=== PATIENT | male | born 1970 | race Caucasian/White ===

== ENCOUNTER 2016-07-14 19:35 | Inpatient (IN) | payer MEDICARE, OTHER ==
[~2016-07-14] VITALS: Ht 188 cm; Wt 92.0 kg
[~2016-07-14 19:35] MED LIST: MOTR200T4 PO
[2016-07-14 19:37] VITALS: BP 147/89; PULSE 112; RESP 18; TEMP 98.2; O2SAT 95
[2016-07-15] VITALS (7 sets, daily range): BP systolic 110–132; BP diastolic 80–88; PULSE 76–82; RESP 16–18; TEMP 97.4–98.9; O2SAT 95–99
[2016-07-15] MEDS ORDERED: FLUCONAZOLE 100 MG PREMIX BAG 50 ML IV ONE (01:15)
[2016-07-15] MEDS ORDERED: SODIUM CHLOR 0.9% 1000 ML INJ 1,000 ML IV ONE (01:15)
[2016-07-15] MEDS ORDERED: CLINDAMYCIN INJ 600 MG in SODIUM CHLORIDE 0.9% INJ 100 ML IV ONE (01:15)
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
[2016-07-15 02:00] LABS: BASOPHIL # 0.1 TH/MM3 (0-0.2); BASOPHIL % 0.9 % (0.0-2.0); EOSINOPHIL # 0.1 TH/MM3 (0-0.4); EOSINOPHIL % 1.9 % (0.0-4.0); HEMATOCRIT 42.5 % (39.0-51.0); HEMO FLAGS DIFF FINAL; LYMPH % 22.2 % (9.0-44.0); LYMPHOCYTE # 1.6 TH/MM3 (1.0-4.8); MEAN CELL VOLUME 89.3 FL (80.0-100.0); MEAN CORPUSCULAR HEMOGLOBIN 29.8 PG (27.0-34.0); MEAN CORPUSCULAR HGB CONC 33.3 % (32.0-36.0); PLATELET COUNT 227 TH/MM3 (150-450); RED BLOOD COUNT 4.75 MIL/MM3 (4.50-5.90); RED CELL DISTRIBUTION WIDTH 12.8 % (11.6-17.2); WHITE BLOOD COUNT 7.4 TH/MM3 (4.0-11.0)
[2016-07-15 02:04] LABS: BLOOD, URINE NEG (NEG); COMMENT (UR) CATH-CULT NOT IND; CULTURE IF INDICATED CATH CULTURE NOT IND; GLUCOSE,URINE NEG (NEG); KETONE, URINE NEG (NEG); MUCUS URINE FEW /lpf (OCC); NITRITE,URINE NEG (NEG); SQUAMOUS EPITHELIAL CELL URINE <1 /hpf (0-5); URINE COLOR YELLOW (YELLW/STRAW)
[2016-07-15 02:30] LABS: ALKALINE PHOSPHATASE 72 U/L (45-117); TOTAL BILIRUBIN ADULT 0.8 MG/DL (0.2-1.0)
[2016-07-15 02:32] LABS: ALT (GPT) 20 U/L (12-78); ANION GAP 7 MEQ/L (5-15); AST (GOT) 15 U/L (15-37); BICARBONATE 30.4 MEQ/L (21.0-32.0); BLOOD UREA NITROGEN 18 MG/DL (7-18); CHLORIDE 104 MEQ/L (98-107); GLOMERULAR FILTRATION RATE 71 ML/MIN (>89); POTASSIUM 4.4 MEQ/L (3.5-5.1); SODIUM (NA) 141 MEQ/L (136-145)
--- NOTE | 2016-07-15 02:43 | RADRPT ---
EXAM DATE/TIME: 07/15/2016 01:40 [place] COMPARISON: CHEST PA & LAT, May 15, 2009, 22:49. INDICATIONS : Cough. MEDICAL HISTORY : None. SURGICAL HISTORY : None. ENCOUNTER: Initial ACUITY: 1 day PAIN SCORE: Non-responsive. LOCATION: Bilateral chest FINDINGS: There is prominent elevation of the diaphragm which was not present previously. Persistent perihilar parenchymal opacity on the right. Left lung is grossly clear. CONCLUSION: Prominent elevation of the right diaphragm which was not present in 2008. Right perihilar and/or basi lar parenchymal process should be considered Kei Ceballos MD on July 15, 2016 at 2:39 Board Certified Radiologist. This report was verified electronically.
[2016-07-15] MEDS ORDERED: SODIUM CHLORIDE 0.9% FLUSH 5 ML FLUSH FLUSH PRN (03:30)
[2016-07-15] MEDS ORDERED: MORPHINE SULFATE 4 MG/ML INJ IV PUSH PRN (03:30)
[2016-07-15] MEDS ORDERED: NALOXONE HCL 0.4 MG/ML AMP IV PRN (03:30)
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
[2016-07-15] MEDS: CLINDAMYCIN INJ 900 MG in SODIUM CHLORIDE 0.9% INJ 100 ML IV SCH ×3 (08:10→21:15)
[2016-07-15] MEDS: SODIUM CHLORIDE 0.9% FLUSH 5 ML FLUSH FLUSH SCH ×2 (10:41→20:20)
[2016-07-15] MEDS: CLOTRIMAZOLE 1% CREAM 15 GM TOPICAL SCH ×3 (10:41→21:55)
[2016-07-15] MEDS: LACTOBACILLUS ACIDOPHILUS TAB PO SCH ×3 (10:41→20:14)
[2016-07-16] VITALS: BP 119/67; PULSE 88; RESP 17; TEMP 100.5; O2SAT 95
[2016-07-16] MEDS: CLINDAMYCIN INJ 900 MG in SODIUM CHLORIDE 0.9% INJ 100 ML IV SCH ×4 (02:30→20:15)
[2016-07-16 04:00] VITALS: BP 109/72; PULSE 78; RESP 17; TEMP 98.9; O2SAT 98
[2016-07-16] MEDS: CLOTRIMAZOLE 1% CREAM 15 GM TOPICAL SCH ×3 (05:30→20:18)
[2016-07-16 07:00] VITALS: BP 109/77; PULSE 82; RESP 16; TEMP 98.1; O2SAT 94
[2016-07-16] MEDS: SODIUM CHLORIDE 0.9% FLUSH 5 ML FLUSH FLUSH SCH ×2 (08:36→20:15)
[2016-07-16] MEDS: LACTOBACILLUS ACIDOPHILUS TAB PO SCH ×3 (08:36→16:49)
--- NOTE | 2016-07-16 09:47 | HHI.PR ---
Subjective Remarks The pt was resting comfortably. He complained of pain in his lower back. No other acute complaints. Discussed with nursing. Objective Vitals Vital Signs Date Time Temp Pulse Resp B/P Pulse Ox O2 Delivery O2 Flow Rate FiO2 07/16/16 04:00 98.9 78 17 109/72 98 07/16/16 00:00 100.5 88 17 119/67 95 07/15/16 20:00 98.9 80 18 120/80 99 07/15/16 14:30 97.4 82 18 110/82 99 I/O 07/15/16 07/15/16 07/15/16 07/16/16 07/16/16 07/16/16 07:00 15:00 23:00 07:00 15:00 23:00 Intake Total 100 ml 230 ml Output Total 350 ml 400 ml Balance -250 ml -170 ml Intake Oral 120 ml IV Total 100 ml 110 ml Output Urine Total 350 ml 400 ml # Bowel Movements 0 0 Result Diagram: 07/15/16 0145 07/15/16 0145 Imaging Last Impressions Chest X-Ray 07/15/16 0000 Signed Impressions: Service Date/Time: June 01:40 - CONCLUSION: Prominent elevation of the right diaphragm which was not present in 2008. Right perihilar and/or basilar parenchymal process should be considered Kei Ceballos MD Objective Remarks GENERAL: This is a well-nourished, well-developed patient, in no apparent distress. SKIN: Fungal rash to lower back and sacral area, raised and red. HEAD: Atraumatic. EYES: Pupils equal round and reactive. ENT: Nose without bleeding, purulent drainage or septal hematoma. Airway patent. NECK: Trachea midline. No JVD CARDIOVASCULAR: Regular rate and rhythm without murmurs, gallops, or rubs. RESPIRATORY: Clear to auscultation. Breath sounds equal bilaterally. No wheezes , rales, or rhonchi. GASTROINTESTINAL: Abdomen soft, non-tender, nondistended. MUSCULOSKELETAL: Extremities without clubbing, cyanosis, or edema. No joint tenderness, effusion, or edema noted. NEUROLOGICAL: Awake and alert. Motor and sensory grossly within normal limits. 4 out of 5 muscle strength in left lower extremity. Dysarthria speech. PSYCH: Mood and affect appropriate. Medications and IVs Current Medications Medications (Trade) Dose Ordered Sig/[place]ico Route Start Time Stop Time Status Last Admin (NS Flush) 2 ml UNSCH PRN FLUSH 07/15/16 03:30 (NS Flush) 2 ml BID FLUSH 07/15/16 09:00 07/16/16 08:36 Naloxone HCl 0.4 mg 0.4 mg UNSCH PRN IV 07/15/16 03:30 (Cleocin Inj/NS Inj) 106 ml @ 212 mls/hr Q6H IV 07/15/16 08:00 07/16/16 08:36 (Lactinex) 1 tab TID PO 07/15/16 09:00 07/16/16 08:36 (Morphine Inj) 2 mg Q3H PRN IV PUSH 07/15/16 03:30 (Lotrimin 1% Cream) 1 applic Q8HR TOPICAL 07/15/16 06:00 07/16/16 05:30 A/P Problem List: (1) Fungal infection of skin ICD Code: B36.9 Status: Acute (2) Homeless ICD Code: Z59.0 Status: Acute Assessment and Plan Fungal infection of skin Involving lower back and sacral area accompanied by a foul odor. - Clindamycin IV. - Pain management with a bowel regimen. - Clotrimazole topical Q8H. - blood cultures x 2, wound culture pending. Homeless The pt says he does not have any family he can live with. - consult case management. DVT prophylaxis: SCDs Discharge Planning Awaiting clinical improvement. Rodolfo Delgado DO Jul 16, 2016 09:47
[2016-07-16] MEDS: DOCUSATE SODIUM 100 MG CAP PO SCH ×2 (10:15→20:14)
[2016-07-16 11:00] VITALS: BP 117/96; PULSE 74; RESP 20; TEMP 97.4; O2SAT 96
[2016-07-16 15:30] VITALS: BP 123/76; PULSE 89; RESP 20; TEMP 98.4; O2SAT 96
[2016-07-16 20:00] VITALS: BP 115/81; PULSE 88; RESP 17; TEMP 97.4; O2SAT 99
[2016-07-17] VITALS (7 sets, daily range): BP systolic 100–118; BP diastolic 62–74; PULSE 69–81; RESP 16–19; TEMP 96.9–97.5; O2SAT 96–98
[2016-07-17] MEDS: CLINDAMYCIN INJ 900 MG in SODIUM CHLORIDE 0.9% INJ 100 ML IV SCH ×4 (01:40→21:23)
[2016-07-17] MEDS: CLOTRIMAZOLE 1% CREAM 15 GM TOPICAL SCH ×3 (05:42→23:09)
[2016-07-17 08:34] LABS: AUTOMATED NEUTROPHIL # 2.7 TH/MM3 (1.8-7.7); BASOPHIL % 0.5 % (0.0-2.0); EOSINOPHIL # 0.2 TH/MM3 (0-0.4); EOSINOPHIL % 3.8 % (0.0-4.0); HEMATOCRIT 40.4 % (39.0-51.0); HEMO FLAGS DIFF FINAL; LYMPH % 33.8 % (9.0-44.0); LYMPHOCYTE # 1.8 TH/MM3 (1.0-4.8); MEAN CELL VOLUME 88.3 FL (80.0-100.0); MONO % 11.6 % (0.0-8.0); NEUT % 50.3 % (16.0-70.0); PLATELET COUNT 193 TH/MM3 (150-450); RED BLOOD COUNT 4.58 MIL/MM3 (4.50-5.90); RED CELL DISTRIBUTION WIDTH 12.9 % (11.6-17.2); WHITE BLOOD COUNT 5.3 TH/MM3 (4.0-11.0)
[2016-07-17] MEDS: DOCUSATE SODIUM 100 MG CAP PO SCH ×2 (08:46→21:23)
[2016-07-17] MEDS: LACTOBACILLUS ACIDOPHILUS TAB PO SCH ×3 (08:46→16:59)
--- NOTE | 2016-07-17 10:55 | HHI.PR ---
Subjective Remarks The patient was resting comfortably in bed. He said he had no acute complaints. He understood that we were looking for placement. Objective Vitals Vital Signs Date Time Temp Pulse Resp B/P Pulse Ox O2 Delivery O2 Flow Rate FiO2 07/17/16 08:00 97.3 69 16 109/69 96 07/17/16 04:00 97.4 71 19 109/71 98 07/17/16 00:00 97.0 74 18 100/62 98 07/16/16 20:00 97.4 88 17 115/81 99 07/16/16 15:35 07/16/16 15:30 98.4 89 20 123/76 96 07/16/16 14:26 07/16/16 11:00 97.4 74 20 117/96 96 I/O 07/16/16 07/16/16 07/16/16 07/17/16 07/17/16 07/17/16 07:00 15:00 23:00 07:00 15:00 23:00 Intake Total 230 ml 560 ml 600 ml 350 ml Output Total 400 ml Balance -170 ml 560 ml 600 ml 350 ml Intake Oral 120 ml 360 ml 480 ml 240 ml IV Total 110 ml 200 ml 120 ml 110 ml Output Urine Total 400 ml # Voids 2 1 2 # Bowel Movements 0 0 Result Diagram: 07/17/16 0732 07/15/16 0145 Imaging Last Impressions Chest X-Ray 07/15/16 0000 Signed Impressions: Service Date/Time: June 01:40 - CONCLUSION: Prominent elevation of the right diaphragm which was not present in 2008. Right perihilar and/or basilar parenchymal process should be considered Kei Ceballos MD Objective Remarks GENERAL: This is a well-nourished, well-developed patient, in no apparent distress. SKIN: Fungal rash to lower back and sacral area, raised and red. HEAD: Atraumatic. EYES: Pupils equal round and reactive. ENT: Nose without bleeding, purulent drainage or septal hematoma. Airway patent. NECK: Trachea midline. No JVD CARDIOVASCULAR: Regular rate and rhythm without murmurs, gallops, or rubs. RESPIRATORY: Clear to auscultation. Breath sounds equal bilaterally. No wheezes , rales, or rhonchi. GASTROINTESTINAL: Abdomen soft, non-tender, nondistended. MUSCULOSKELETAL: Extremities without clubbing, cyanosis, or edema. No joint tenderness, effusion, or edema noted. NEUROLOGICAL: Awake and alert. Motor and sensory grossly within normal limits. 4 out of 5 muscle strength in left lower extremity. Dysarthria speech. PSYCH: Mood and affect appropriate. Procedures None. Medications and IVs Current Medications Medications (Trade) Dose Ordered Sig/Rico Route Start Time Stop Time Status Last Admin (NS Flush) 2 ml UNSCH PRN FLUSH 07/15/16 03:30 (NS Flush) 2 ml BID FLUSH 07/15/16 09:00 07/16/16 20:15 Naloxone HCl 0.4 mg 0.4 mg UNSCH PRN IV 07/15/16 03:30 (Cleocin Inj/NS Inj) 106 ml @ 212 mls/hr Q6H IV 07/15/16 08:00 07/17/16 08:46 (Lactinex) 1 tab TID PO 07/15/16 09:00 07/17/16 08:46 (Morphine Inj) 2 mg Q3H PRN IV PUSH 07/15/16 03:30 (Lotrimin 1% Cream) 1 applic Q8HR TOPICAL 07/15/16 06:00 07/17/16 05:42 (Roxicodone) 5 mg Q4H PRN PO 07/16/16 10:15 (Colace) 100 mg BID PO 07/16/16 10:15 07/17/16 08:46 A/P Problem List: (1) Fungal infection of skin ICD Code: B36.9 Status: Acute (2) Homeless ICD Code: Z59.0 Status: Acute Assessment and Plan Fungal infection of skin Involving lower back and sacral area accompanied by a foul odor. - Continue clindamycin, clotrimazole topical. - Pain management with a bowel regimen. - blood cultures x 2, wound culture pending. Homeless/ TBI The pt says he does not have any family he can live with. - consult case management. - PT/OT. DVT prophylaxis: SCDs Discharge Planning Awaiting placement. Rodolfo Delgado DO Jul 17, 2016 10:55
[2016-07-17] MEDS: SODIUM CHLORIDE 0.9% FLUSH 5 ML FLUSH FLUSH SCH ×2 (12:41→21:24)
[2016-07-18] VITALS: BP 127/68; PULSE 77; RESP 17; TEMP 97.5; O2SAT 97
[2016-07-18] MEDS: CLINDAMYCIN INJ 900 MG in SODIUM CHLORIDE 0.9% INJ 100 ML IV SCH ×4 (02:36→21:41)
[2016-07-18 04:00] VITALS: BP 109/67; PULSE 73; RESP 16; TEMP 96; O2SAT 96
[2016-07-18] MEDS: CLOTRIMAZOLE 1% CREAM 15 GM TOPICAL SCH ×3 (06:40→21:40)
[2016-07-18 08:00] VITALS: BP 112/75; PULSE 69; RESP 18; TEMP 96.1; O2SAT 97
[2016-07-18] MEDS: LACTOBACILLUS ACIDOPHILUS TAB PO SCH ×3 (08:11→18:00)
[2016-07-18] MEDS: DOCUSATE SODIUM 100 MG CAP PO SCH ×2 (08:11→21:00)
[2016-07-18] MEDS: SODIUM CHLORIDE 0.9% FLUSH 5 ML FLUSH FLUSH SCH ×2 (08:11→21:41)
[2016-07-18 12:00] VITALS: BP 113/70; PULSE 74; RESP 18; TEMP 97.6; O2SAT 99
--- NOTE | 2016-07-18 14:16 | HHI.PR ---
Subjective Remarks The patient was resting comfortably in bed. He had no acute complaints. He believes his back wound is getting better. Objective Vitals Vital Signs Date Time Temp Pulse Resp B/P Pulse Ox O2 Delivery O2 Flow Rate FiO2 07/18/16 12:00 97.6 74 18 113/70 99 07/18/16 08:00 96.1 69 18 112/75 97 07/18/16 04:00 96.0 73 16 109/67 96 07/18/16 00:00 97.5 77 17 127/68 97 07/17/16 20:00 97.5 77 18 110/72 98 07/17/16 16:00 97.3 75 16 110/71 97 I/O 07/17/16 07/17/16 07/17/16 07/18/16 07/18/16 07/18/16 07:00 15:00 23:00 07:00 15:00 23:00 Intake Total 350 ml 1160 ml 720 ml 480 ml Balance 350 ml 1160 ml 720 ml 480 ml Intake Oral 240 ml 960 ml 720 ml 480 ml IV Total 110 ml 200 ml # Voids 2 5 2 2 # Bowel Movements 0 1 Result Diagram: 07/17/16 0732 07/15/16 0145 Imaging Last Impressions Chest X-Ray 07/15/16 0000 Signed Impressions: Service Date/Time: June 01:40 - CONCLUSION: Prominent elevation of the right diaphragm which was not present in 2008. Right perihilar and/or basilar parenchymal process should be considered Kei Ceballos MD Objective Remarks GENERAL: This is a well-nourished, well-developed patient, in no apparent distress. SKIN: Fungal rash to lower back and sacral area has improved. HEAD: Atraumatic. EYES: Pupils equal round and reactive. ENT: Nose without bleeding, purulent drainage or septal hematoma. Airway patent. NECK: Trachea midline. No JVD CARDIOVASCULAR: Regular rate and rhythm without murmurs, gallops, or rubs. RESPIRATORY: Clear to auscultation. Breath sounds equal bilaterally. No wheezes , rales, or rhonchi. GASTROINTESTINAL: Abdomen soft, non-tender, nondistended. MUSCULOSKELETAL: Extremities without clubbing, cyanosis, or edema. No joint tenderness, effusion, or edema noted. NEUROLOGICAL: Awake and alert. Motor and sensory grossly within normal limits. 4 out of 5 muscle strength in left lower extremity. Dysarthria speech. PSYCH: Mood and affect appropriate. Procedures None. Medications and IVs Current Medications Medications (Trade) Dose Ordered Sig/Rico Route Start Time Stop Time Status Last Admin (NS Flush) 2 ml UNSCH PRN FLUSH 07/15/16 03:30 (NS Flush) 2 ml BID FLUSH 07/15/16 09:00 07/18/16 08:11 Naloxone HCl 0.4 mg 0.4 mg UNSCH PRN IV 07/15/16 03:30 (Cleocin Inj/NS Inj) 106 ml @ 212 mls/hr Q6H IV 07/15/16 08:00 07/18/16 12:33 (Lactinex) 1 tab TID PO 07/15/16 09:00 07/18/16 12:32 (Morphine Inj) 2 mg Q3H PRN IV PUSH 07/15/16 03:30 (Lotrimin 1% Cream) 1 applic Q8HR TOPICAL 07/15/16 06:00 07/18/16 12:32 (Roxicodone) 5 mg Q4H PRN PO 07/16/16 10:15 (Colace) 100 mg BID PO 07/16/16 10:15 07/18/16 08:11 A/P Problem List: (1) Fungal infection of skin ICD Code: B36.9 Status: Acute (2) Homeless ICD Code: Z59.0 Status: Acute Assessment and Plan Fungal infection of skin Involving lower back and sacral area accompanied by a foul odor. Continues to improve. - Continue clindamycin, clotrimazole topical. - Pain management with a bowel regimen. - blood cultures x 2 no growth to date. Homeless/ TBI The pt says he does not have any family he can live with. - consult case management. Assisting with possible placement. - PT/OT. DVT prophylaxis: Lovenox, SCDs Discharge Planning Awaiting placement. Rodolfo Delgado DO Jul 18, 2016 14:16
[2016-07-18 16:00] VITALS: BP 118/86; PULSE 72; RESP 18; TEMP 97.1; O2SAT 100
[2016-07-18] MEDS: ENOXAPARIN SODIUM 40 MG/0.4 ML SYRINGE SQ SCH (17:57)
[2016-07-18 20:00] VITALS: BP 127/72; PULSE 72; RESP 17; TEMP 97.7; O2SAT 97
[2016-07-19] VITALS: BP 112/67; PULSE 64; RESP 18; TEMP 97.1; O2SAT 96
[2016-07-19] MEDS: CLINDAMYCIN INJ 900 MG in SODIUM CHLORIDE 0.9% INJ 100 ML IV SCH ×3 (03:24→14:42)
[2016-07-19 04:00] VITALS: BP 116/63; PULSE 74; RESP 18; TEMP 96.8; O2SAT 96
[2016-07-19] MEDS: CLOTRIMAZOLE 1% CREAM 15 GM TOPICAL SCH ×3 (04:39→20:41)
[2016-07-19 08:00] VITALS: BP 116/72; PULSE 73; RESP 18; TEMP 97.8; O2SAT 95
[2016-07-19] MEDS: LACTOBACILLUS ACIDOPHILUS TAB PO SCH ×3 (08:47→16:45)
[2016-07-19] MEDS: DOCUSATE SODIUM 100 MG CAP PO SCH ×2 (08:47→20:41)
[2016-07-19] MEDS: SODIUM CHLORIDE 0.9% FLUSH 5 ML FLUSH FLUSH SCH ×2 (08:48→20:41)
[2016-07-19 12:00] VITALS: BP 112/79; PULSE 78; RESP 18; TEMP 98; O2SAT 97
--- NOTE | 2016-07-19 14:49 | HHI.PR ---
Subjective Remarks Patient denies chest pain, shortness of breath He complains of mild pain in the buttocks where he has the rash Denies any fevers Denies diarrhea As per patient, thinks rash in the back improving As per RN, brushing the back is improving. Objective Vitals Vital Signs Date Time Temp Pulse Resp B/P Pulse Ox O2 Delivery O2 Flow Rate FiO2 07/19/16 12:00 98.0 78 18 112/79 97 07/19/16 08:00 97.8 73 18 116/72 95 07/19/16 04:00 96.8 74 18 116/63 96 07/19/16 00:00 97.1 64 18 112/67 96 07/18/16 20:00 97.7 72 17 127/72 97 07/18/16 16:00 97.1 72 18 118/86 100 I/O 07/18/16 07/18/16 07/18/16 07/19/16 07/19/16 07/19/16 07:00 15:00 23:00 07:00 15:00 23:00 Intake Total 480 ml 600 ml 920 ml 440 ml 125 ml Output Total 250 ml Balance 480 ml 350 ml 920 ml 440 ml 125 ml Intake Oral 480 ml 600 ml 720 ml 240 ml IV Total 200 ml 200 ml 125 ml Output Urine Total 250 ml # Voids 2 2 3 1 # Bowel Movements 1 Result Diagram: 07/17/16 0732 07/15/16 0145 Imaging Last Impressions Chest X-Ray 07/15/16 0000 Signed Impressions: Service Date/Time: June 01:40 - CONCLUSION: Prominent elevation of the right diaphragm which was not present in 2008. Right perihilar and/or basilar parenchymal process should be considered Kei Ceballos MD Objective Remarks GENERAL: This is a well-nourished, well-developed patient, in no apparent distress. SKIN: Fungal rash to lower back and sacral area has improved. HEAD: Atraumatic. EYES: Pupils equal round and reactive. ENT: Nose without bleeding, purulent drainage or septal hematoma. Airway patent. NECK: Trachea midline. No JVD CARDIOVASCULAR: Regular rate and rhythm without murmurs, gallops, or rubs. RESPIRATORY: Clear to auscultation. Breath sounds equal bilaterally. No wheezes , rales, or rhonchi. GASTROINTESTINAL: Abdomen soft, non-tender, nondistended. MUSCULOSKELETAL: Extremities without clubbing, cyanosis, or edema. No joint tenderness, effusion, or edema noted. NEUROLOGICAL: Awake and alert. Motor and sensory grossly within normal limits. 4 out of 5 muscle strength in left lower extremity. Dysarthria speech. PSYCH: Mood and affect appropriate. Procedures None. Medications and IVs Current Medications Medications (Trade) Dose Ordered Sig/Rico Route Start Time Stop Time Status Last Admin (NS Flush) 2 ml UNSCH PRN FLUSH 07/15/16 03:30 (NS Flush) 2 ml BID FLUSH 07/15/16 09:00 07/19/16 08:48 Naloxone HCl 0.4 mg 0.4 mg UNSCH PRN IV 07/15/16 03:30 (Cleocin Inj/NS Inj) 106 ml @ 212 mls/hr Q6H IV 07/15/16 08:00 07/19/16 14:42 (Lactinex) 1 tab TID PO 07/15/16 09:00 07/19/16 14:42 (Morphine Inj) 2 mg Q3H PRN IV PUSH 07/15/16 03:30 (Lotrimin 1% Cream) 1 applic Q8HR TOPICAL 07/15/16 06:00 07/19/16 14:42 (Roxicodone) 5 mg Q4H PRN PO 07/16/16 10:15 (Colace) 100 mg BID PO 07/16/16 10:15 07/19/16 08:47 (Lovenox Inj) 40 mg Q24H SQ 07/18/16 15:00 07/19/16 14:57 A/P Problem List: (1) Fungal infection of skin ICD Code: B36.9 Status: Acute Plan: Involving lower back and sacral area accompanied by a foul odor. Continues to improve. - Continue clindamycin, clotrimazole topical. - Pain management with a bowel regimen. -The cultures negative to date and no signs of generalized infection. (2) Cellulitis of multiple sites of buttock ICD Code: L03.317 Status: Acute Plan: Patient initially been treated with IV clindamycin. I will discontinue IV clindamycin and switch to oral to complete a total of 10 days. (3) Homeless ICD Code: Z59.0 Status: Acute Plan: Patient states that she does not have any family that he can live with. Case management consulted and assisting him placement. Assessment and Plan GI prophylaxis: Add PPI DVT prophylaxis: Lovenox subcutaneously. Discharge Planning Discharge pending placement. Ronal Petersen MD Jul 19, 2016 14:49
[2016-07-19] MEDS: ENOXAPARIN SODIUM 40 MG/0.4 ML SYRINGE SQ SCH (14:57)
[2016-07-19 16:00] VITALS: BP 123/83; PULSE 71; RESP 16; TEMP 96.8; O2SAT 100
[2016-07-19] MEDS: CLINDAMYCIN 150 MG CAP PO SCH ×2 (16:45→23:14)
[2016-07-19] MEDS: PANTOPRAZOLE SOD 40 MG DELAYED RELEASE TAB PO SCH (16:45)
[2016-07-19 20:00] VITALS: BP 117/81; PULSE 76; RESP 17; TEMP 97.8; O2SAT 99
[2016-07-20] VITALS: BP 108/77; PULSE 68; RESP 16; TEMP 96.5; O2SAT 97
[2016-07-20 04:00] VITALS: BP 109/70; PULSE 68; RESP 16; TEMP 97.2; O2SAT 95
[2016-07-20] MEDS: CLINDAMYCIN 150 MG CAP PO SCH ×3 (04:46→16:06)
[2016-07-20] MEDS: CLOTRIMAZOLE 1% CREAM 15 GM TOPICAL SCH ×3 (04:46→21:18)
[2016-07-20 08:00] VITALS: BP 120/86; PULSE 66; RESP 18; TEMP 98.2; O2SAT 97
[2016-07-20] MEDS: DOCUSATE SODIUM 100 MG CAP PO SCH ×2 (08:18→21:16)
[2016-07-20] MEDS: LACTOBACILLUS ACIDOPHILUS TAB PO SCH ×3 (08:18→16:07)
[2016-07-20] MEDS: PANTOPRAZOLE SOD 40 MG DELAYED RELEASE TAB PO SCH (08:18)
[2016-07-20] MEDS: SODIUM CHLORIDE 0.9% FLUSH 5 ML FLUSH FLUSH SCH ×2 (08:19→21:16)
[2016-07-20 12:00] VITALS: BP 118/85; PULSE 84; RESP 18; TEMP 97.7; O2SAT 96
[2016-07-20 16:00] VITALS: BP 128/94; PULSE 95; RESP 18; TEMP 97.1; O2SAT 100
--- NOTE | 2016-07-20 16:01 | HHI.PR ---
Subjective Remarks Patient has no complaints states he does not want to be discharged to a long care term center and would rather be discharged to live in his car denies cp/sob denies fevers/chills stable vital signs Objective Vitals Vital Signs Date Time Temp Pulse Resp B/P Pulse Ox O2 Delivery O2 Flow Rate FiO2 07/20/16 12:00 97.7 84 18 118/85 96 07/20/16 08:00 98.2 66 18 120/86 97 07/20/16 04:00 97.2 68 16 109/70 95 07/20/16 00:00 96.5 68 16 108/77 97 07/19/16 20:00 97.8 76 17 117/81 99 I/O 07/19/16 07/19/16 07/19/16 07/20/16 07/20/16 07/20/16 07:00 15:00 23:00 07:00 15:00 23:00 Intake Total 440 ml 125 ml 240 ml 360 ml Balance 440 ml 125 ml 240 ml 360 ml Intake Oral 240 ml 240 ml 360 ml IV Total 200 ml 125 ml # Voids 1 2 2 # Bowel Movements 0 Result Diagram: 07/17/16 0732 Imaging Last Impressions Chest X-Ray 07/15/16 0000 Signed Impressions: Service Date/Time: June 01:40 - CONCLUSION: Prominent elevation of the right diaphragm which was not present in 2008. Right perihilar and/or basilar parenchymal process should be considered Kei Ceballos MD Objective Remarks GENERAL: This is a well-nourished, well-developed patient, in no apparent distress. SKIN: Fungal rash to lower back and sacral area has improved. HEAD: Atraumatic. EYES: Pupils equal round and reactive. ENT: Nose without bleeding, purulent drainage or septal hematoma. Airway patent. NECK: Trachea midline. No JVD CARDIOVASCULAR: Regular rate and rhythm without murmurs, gallops, or rubs. RESPIRATORY: Clear to auscultation. Breath sounds equal bilaterally. No wheezes , rales, or rhonchi. GASTROINTESTINAL: Abdomen soft, non-tender, nondistended. MUSCULOSKELETAL: Extremities without clubbing, cyanosis, or edema. No joint tenderness, effusion, or edema noted. NEUROLOGICAL: Awake and alert. Motor and sensory grossly within normal limits. 4 out of 5 muscle strength in left lower extremity. Dysarthria speech. PSYCH: Mood and affect appropriate. Procedures None. Medications and IVs Current Medications Medications (Trade) Dose Ordered Sig/Rico Route Start Time Stop Time Status Last Admin (NS Flush) 2 ml UNSCH PRN FLUSH 07/15/16 03:30 (NS Flush) 2 ml BID FLUSH 07/15/16 09:00 07/20/16 08:19 (Narcan Inj) 0.4 mg UNSCH PRN IV 07/15/16 03:30 (Lactinex) 1 tab TID PO 07/15/16 09:00 07/20/16 16:07 (Morphine Inj) 2 mg Q3H PRN IV PUSH 07/15/16 03:30 (Lotrimin 1% Cream) 1 applic Q8HR TOPICAL 07/15/16 06:00 07/20/16 12:02 (Roxicodone) 5 mg Q4H PRN PO 07/16/16 10:15 (Colace) 100 mg BID PO 07/16/16 10:15 07/20/16 08:18 (Lovenox Inj) 40 mg Q24H SQ 07/18/16 15:00 07/20/16 16:06 (Protonix) 40 mg DAILY PO 07/19/16 15:30 07/20/16 08:18 (Cleocin) 300 mg Q6HR PO 07/19/16 18:00 07/24/16 17:59 07/20/16 16:06 Urinary Catheter: No Vascular Central Line Catheter: No A/P Problem List: (1) Fungal infection of skin ICD Code: B36.9 Status: Acute Plan: Involving lower back and sacral area accompanied by a foul odor. Continues to improve. - Continue clindamycin, clotrimazole topical. - Pain management with a bowel regimen. -The cultures negative to date and no signs of generalized infection. (2) Cellulitis of multiple sites of buttock ICD Code: L03.317 Status: Acute Plan: Patient initially been treated with IV clindamycin. I will discontinue IV clindamycin and switch to oral to complete a total of 10 days. (3) Homeless ICD Code: Z59.0 Status: Acute Plan: Patient states that she does not have any family that he can live with. Patient wants to be discharged to live in his car. given his history of TBI will consult psychiatry to determine patient's competency. Assessment and Plan GI prophylaxis: Add PPI DVT prophylaxis: Lovenox subcutaneously. Discharge Planning pending psych consultation. Ronal Petersen MD Jul 20, 2016 16:01
[2016-07-20] MEDS: ENOXAPARIN SODIUM 40 MG/0.4 ML SYRINGE SQ SCH (16:06)
[2016-07-20 20:00] VITALS: BP 108/75; PULSE 85; RESP 16; TEMP 98.7; O2SAT 97
[2016-07-21] MEDS: CLINDAMYCIN 150 MG CAP PO SCH ×4 (00:09→16:14)
[2016-07-21 00:30] VITALS: BP 120/71; PULSE 71; RESP 16; TEMP 96.9; O2SAT 95
[2016-07-21 05:00] VITALS: BP 110/71; PULSE 69; RESP 16; TEMP 96.9; O2SAT 97
[2016-07-21] MEDS: CLOTRIMAZOLE 1% CREAM 15 GM TOPICAL SCH ×3 (05:34→21:27)
[2016-07-21] MEDS: LACTOBACILLUS ACIDOPHILUS TAB PO SCH ×3 (07:49→16:14)
[2016-07-21] MEDS: DOCUSATE SODIUM 100 MG CAP PO SCH ×2 (07:49→21:00)
[2016-07-21] MEDS: PANTOPRAZOLE SOD 40 MG DELAYED RELEASE TAB PO SCH (07:49)
[2016-07-21 07:50] VITALS: BP 122/96; PULSE 79; RESP 20; TEMP 98; O2SAT 96
[2016-07-21] MEDS: SODIUM CHLORIDE 0.9% FLUSH 5 ML FLUSH FLUSH SCH ×2 (07:53→21:27)
[2016-07-21 11:06] VITALS: BP 129/92; PULSE 99; RESP 20; TEMP 98.1; O2SAT 96
--- NOTE | 2016-07-21 11:43 | HHI.PR ---
Subjective Remarks patient has no complaints wants to be discharged denies cp/sob Objective Vitals Vital Signs Date Time Temp Pulse Resp B/P Pulse Ox O2 Delivery O2 Flow Rate FiO2 07/21/16 11:06 98.1 99 20 129/92 96 07/21/16 07:50 98.0 79 20 122/96 96 07/21/16 05:00 96.9 69 16 110/71 97 07/21/16 00:30 96.9 71 16 120/71 95 07/20/16 20:00 98.7 85 16 108/75 97 07/20/16 16:00 97.1 95 18 128/94 100 07/20/16 12:00 97.7 84 18 118/85 96 I/O 07/20/16 07/20/16 07/20/16 07/21/16 07/21/16 07/21/16 07:00 15:00 23:00 07:00 15:00 23:00 Intake Total 360 ml 480 ml Balance 360 ml 480 ml Intake Oral 360 ml 480 ml # Voids 2 2 2 2 # Bowel Movements 0 Result Diagram: 07/17/16 0732 Imaging Last Impressions Chest X-Ray 07/15/16 0000 Signed Impressions: Service Date/Time: June 01:40 - CONCLUSION: Prominent elevation of the right diaphragm which was not present in 2008. Right perihilar and/or basilar parenchymal process should be considered Kei Ceballos MD Objective Remarks GENERAL: This is a well-nourished, well-developed patient, in no apparent distress. SKIN: Fungal rash to lower back and sacral area has improved. HEAD: Atraumatic. EYES: Pupils equal round and reactive. ENT: Nose without bleeding, purulent drainage or septal hematoma. Airway patent. NECK: Trachea midline. No JVD CARDIOVASCULAR: Regular rate and rhythm without murmurs, gallops, or rubs. RESPIRATORY: Clear to auscultation. Breath sounds equal bilaterally. No wheezes , rales, or rhonchi. GASTROINTESTINAL: Abdomen soft, non-tender, nondistended. MUSCULOSKELETAL: Extremities without clubbing, cyanosis, or edema. No joint tenderness, effusion, or edema noted. NEUROLOGICAL: Awake and alert. Motor and sensory grossly within normal limits. 4 out of 5 muscle strength in left lower extremity. Dysarthria speech. PSYCH: Mood and affect appropriate. Procedures None. Medications and IVs Current Medications Medications (Trade) Dose Ordered Sig/Rico Route Start Time Stop Time Status Last Admin (NS Flush) 2 ml UNSCH PRN FLUSH 07/15/16 03:30 (NS Flush) 2 ml BID FLUSH 07/15/16 09:00 07/21/16 07:53 (Narcan Inj) 0.4 mg UNSCH PRN IV 07/15/16 03:30 (Lactinex) 1 tab TID PO 07/15/16 09:00 07/21/16 07:49 (Morphine Inj) 2 mg Q3H PRN IV PUSH 07/15/16 03:30 (Lotrimin 1% Cream) 1 applic Q8HR TOPICAL 07/15/16 06:00 07/21/16 05:34 (Roxicodone) 5 mg Q4H PRN PO 07/16/16 10:15 (Colace) 100 mg BID PO 07/16/16 10:15 07/21/16 07:49 (Lovenox Inj) 40 mg Q24H SQ 07/18/16 15:00 07/20/16 16:06 (Protonix) 40 mg DAILY PO 07/19/16 15:30 07/21/16 07:49 (Cleocin) 300 mg Q6HR PO 07/19/16 18:00 07/24/16 17:59 07/21/16 05:34 Urinary Catheter: No Vascular Central Line Catheter: No A/P Problem List: (1) Fungal infection of skin ICD Code: B36.9 Status: Acute Plan: Involving lower back and sacral area accompanied by a foul odor. Continues to improve. - Continue clindamycin, clotrimazole topical. - Pain management with a bowel regimen. -The cultures negative to date and no signs of generalized infection. (2) Cellulitis of multiple sites of buttock ICD Code: L03.317 Status: Acute Plan: Patient initially been treated with IV clindamycin. continue oral Clindamycin x 10 days (3) Homeless ICD Code: Z59.0 Status: Acute Plan: Patient states that she does not have any family that he can live with. Patient wants to be discharged to live in his car. given his history of TBI will consult psychiatry to determine patient's competency. ---> still pending Assessment and Plan GI prophylaxis: Add PPI DVT prophylaxis: Lovenox subcutaneously. Discharge Planning pending psych consultation. Ronal Petersen MD Jul 21, 2016 11:43
[2016-07-21] MEDS: ENOXAPARIN SODIUM 40 MG/0.4 ML SYRINGE SQ SCH (13:26)
--- NOTE | 2016-07-21 14:53 | PD.CONS ---
Provisional Diagnosis Admission Date Jul 17, 2016 at 09:41 [place]. Psychological factors affecting medical condition History of Present Illness Service Psychiatry Consult Requested By Primary Care Physician No Primary Care Physician HPI The patient is a 45 years old woman, self reported homeless, single, unemployed, without any previous psychiatric history, no previous suicidal attempts, no previous outpatient psychiatric care, no previous psychiatric hospitalizations, history of TBI residual motor aphasia, hospitalized due to buttock cellulitis. He was consulted to psychiatry to assess decision-making capacity to participate in discharge planning. On psychiatric evaluation the patient does not present any symptomatology of depression, acute anxiety, luis or perceptual disturbances. The patient denies suicidal or homicidal ideation, the patient denies visual or auditory hallucinations. She is fully oriented 3 , MMS performed, he scored 28/30. Patient was able to verbalize choice of being discharged back to the community, he actually agree to be discharged to a [place] [facility] care facility if necessary, he was able to verbalize the reason of his hospitalization , his underlying medical condition, the importance of following medical recommendations and comply with treatment. He denies the use of illicit drugs and alcohol. Review of Systems Constitutional: DENIES: Diaphoretic episodes, Fatigue, Fever, Weight gain, Weight loss, Chills, Dizziness, Change in appetite, Night Sweats Endocrine: DENIES: Heat/cold intolerance, Polydipsia, Polyuria, Polyphagia Eyes: DENIES: Blurred vision, Diplopia, Eye inflammation, Eye pain, Vision loss , Photosensitivity, Double Vision Cardiovascular: DENIES: Chest pain, Palpitations, Syncope, Dyspnea on Exertion , PND, Lower Extremity Edema, Orthopnea, Claudication Genitourinary: DENIES: Sexual dysfunction, Urinary frequency, Urinary incontinence, Urgency, Hematuria, Dysuria, Nocturia, Penile Discharge, Testicular Pain, Testicular Swelling Hematologic/lymphatic: DENIES: Bruising, Lymphadenopathy Immunologic/allergic: DENIES: Eczema, Urticaria Neurologic: COMPLAINS OF: Localized weakness, Speech Problems Psychiatric: DENIES: Anxiety, Confusion, Mood changes, Depression, Hallucinations, Agitation, Suicidal Ideation, Homicidal Ideation, Delusions Past Family Social History Coded Allergies: No Known Allergies (Verified , 07/14/16) Active Scripts Ibuprofen (Motrin Ib)200 Mg [id number] Mg PO Q6H PRN (PAIN SCALE 1 TO 10) #20 TAB Ref 0 Prov:Willa Juan MD 05/06/16 Current Medications Medications (Trade) Dose Ordered Sig/Rico Route Start Time Stop Time Status Last Admin (NS Flush) 2 ml UNSCH PRN FLUSH 07/15/16 03:30 (NS Flush) 2 ml BID FLUSH 07/15/16 09:00 07/21/16 07:53 (Narcan Inj) 0.4 mg UNSCH PRN IV 07/15/16 03:30 (Lactinex) 1 tab TID PO 07/15/16 09:00 07/21/16 13:26 (Morphine Inj) 2 mg Q3H PRN IV PUSH 07/15/16 03:30 (Lotrimin 1% Cream) 1 applic Q8HR TOPICAL 07/15/16 06:00 07/21/16 13:26 (Roxicodone) 5 mg Q4H PRN PO 07/16/16 10:15 (Colace) 100 mg BID PO 07/16/16 10:15 07/21/16 07:49 (Lovenox Inj) 40 mg Q24H SQ 07/18/16 15:00 07/21/16 13:26 (Protonix) 40 mg DAILY PO 07/19/16 15:30 07/21/16 07:49 (Cleocin) 300 mg Q6HR PO 07/19/16 18:00 07/24/16 17:59 07/21/16 13:26 Social History Patient was born and raised in [place], he is single, he lives in [place] with friends or in his car, unemployed, supported by [facility], his highest level of education is HS. Physical Exam Vital Signs Vital Signs Date Time Temp Pulse Resp B/P Pulse Ox O2 Delivery O2 Flow Rate FiO2 07/21/16 11:06 98.1 99 20 129/92 96 I/O 07/20/16 07/20/16 07/21/16 08:00 16:00 00:00 Intake Total 360 ml 480 ml Balance 360 ml 480 ml Mental Status Examination Speech: Incoherent, Other (aphasic ) Orientation: x3 Memory: Impaired (describe) Thought Process: Logical Thought Content: Unremarkable Hallucination Type: None Suicidal Ideation: No Previous Suicide Attempts: No Previous Homicide Attempts: No Judgement: WNL Affect: Good Mood: Appropriate Motor Activity: Normal gait Assessment & Plan Problem List: (1) Psychological factors affecting medical condition Assessment & Plan: 45 years old woman without any previous psychiatric history, no previous suicidal attempts, no previous outpatient psychiatric care, no previous psychiatric hospitalizations, history of TBI residual motor aphasia, hospitalized due to buttock cellulitis. He was consulted to psychiatry to assess decision-making capacity to participate in discharge planning. On psychiatric evaluation the patient does not present any symptomatology of depression, acute anxiety, luis or perceptual disturbances. The patient denies suicidal or homicidal ideation, the patient denies visual or auditory hallucinations. She is fully oriented 3, MMS performed, he scored 28/ 30. Patient was able to verbalize choice of being discharged back to the community, he actually agree to be discharged to a [place] if necessary, he was able to verbalize the reason of his hospitalization, his underlying medical condition, the importance of following medical recommendations and comply with treatment. Patient was able to express the logical consequences of being discharge to a [place] health care facility vs to his car. At the moment of this evaluation there is no psychiatric contact with medication for the patient to participate in his discharge planning and to agree or refuse with proposed plan. He does not need any immediate psychiatric intervention. Consul appreciated. ICD Code: F54 Assessment & Plan Estimated LOS: days Oracio Olivares MD Jul 21, 2016 14:53
[2016-07-21 15:39] VITALS: BP 127/93; PULSE 87; RESP 20; TEMP 98.2; O2SAT 100
[2016-07-21 20:00] VITALS: BP 141/106; PULSE 89; RESP 18; TEMP 97.9; O2SAT 96
[2016-07-22] VITALS: BP 125/79; PULSE 74; RESP 18; TEMP 97.7; O2SAT 95
[2016-07-22] MEDS: CLINDAMYCIN 150 MG CAP PO SCH ×3 (00:05→11:57)
[2016-07-22 04:00] VITALS: BP 103/68; PULSE 98; RESP 18; TEMP 97.1; O2SAT 96
[2016-07-22] MEDS: CLOTRIMAZOLE 1% CREAM 15 GM TOPICAL SCH ×2 (05:19→15:50)
[2016-07-22 08:00] VITALS: BP 103/70; PULSE 69; RESP 16; TEMP 96.1; O2SAT 96
[2016-07-22] MEDS ORDERED: CLIN150 PO (09:37)
[2016-07-22] MEDS ORDERED: PANT40TA3 PO (09:37)
[2016-07-22] MEDS ORDERED: CLOT1CRE6 TOPICAL (09:37)
[2016-07-22] MEDS ORDERED: LACT PO (09:37)
--- NOTE | 2016-07-22 09:37 | HHI.DCPOC ---
Discharge Care Plan Diagnosis: (1) Debility, unspecified (2) Fungal infection of skin (3) Cellulitis of multiple sites of buttock (4) Psychological factors affecting medical condition (5) Homeless Goals to Promote Your Health * To prevent worsening of your condition and complications * To maintain your health at the optimal level Directions to Meet Your Goals Take your medications as prescribed Follow your dietary instruction Follow activity as directed Keep your appointments as scheduled Take your immunizations and boosters as scheduled If your symptoms worsen call your PCP, if no PCP go to Urgent Care Center or Emergency Room Smoking is Dangerous to Your Health. Avoid second hand smoke Call the 24-hour hour crisis hotline for domestic abuse at Ronal Petersen MD Jul 22, 2016 09:37
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
[2016-07-22] MEDS: LACTOBACILLUS ACIDOPHILUS TAB PO SCH (11:57)
[2016-07-22] MEDS: DOCUSATE SODIUM 100 MG CAP PO SCH (11:57)
[2016-07-22 12:00] VITALS: BP 147/97; PULSE 80; RESP 16; TEMP 96.7; O2SAT 96
[2016-07-22] MEDS: ENOXAPARIN SODIUM 40 MG/0.4 ML SYRINGE SQ SCH (15:00)
== END 2016-07-22 16:12 | disposition home or self-care (01) | DRG 603 ==
LOC: NEPE 19:35 → NEDA 07-15 03:21 → HOCB 07-15 14:48 → OBSVTOIN 07-17 09:41
PROVIDERS: ADMIT Hospitalist; ATTEND Hospitalist
DX: L03.317 Cellulitis of buttock (principal); G80.9 Cerebral palsy, unspecified; L29.9 Pruritus, unspecified; R32 Unspecified urinary incontinence; Z59.0 Homelessness; Z87.820 Personal history of traumatic brain injury
CPT/HCPCS: 71010; 80053; 81001; 83605; 84443; 85025; 87040; 96365; 96367; G0378; G8987-GP; G8988-GP; J1450; J1650; J7030

== ENCOUNTER 2016-09-27 16:08 | Emergency (ER) | payer MEDICARE, OTHER ==
[~2016-09-27] VITALS: Ht 188 cm; Wt 90.0 kg
[~2016-09-27 16:08] MED LIST changes: +CLIN150 PO; +CLOT1CRE6 TOPICAL; +LACT PO; -MOTR200T4 PO; +PANT40TA3 PO
[2016-09-27 16:09] VITALS: BP 129/93; PULSE 90; RESP 20; TEMP 97.9; O2SAT 95
[2016-09-27] MEDS ORDERED: BACT800T5 PO (17:22)
[2016-09-27] MEDS ORDERED: CEPH-460 PO (17:22)
--- NOTE | 2016-09-27 17:23 | PD ---
HPI Chief Complaint: Skin Problem Time Seen by Provider: 17:21 Travel History International Travel<30 days: No Contact w/Intl Traveler<30days: No Traveled to known affect area: No History of Present Illness HPI 46-year-old male presents to the emergency Department with complaint of an open wound top of his right foot has been there for a couple weeks. The patient is homeless and is wearing tightfitting water shoes. The wound is consistent with pressure from the water shoes. He denies fever, chills, nausea, vomiting. Denies paresthesias, loss of sensation, decreased range of motion, decreased strength to the affected extremity. The patient says he does have a vehicle and he has a pair of shoes in the vehicle that he can wear. No known allergies. Up-to-date on tetanus vaccination. No other modifying factors or associated signs and symptoms. PFSH Past Medical History Cerebral Palsy: Yes Developmental Delay: Yes Diminished Hearing: No Musculoskeletal: No Neurologic: Yes (CEREBRAL PALSY) Respiratory: No Past Surgical History Other Surgery: Yes (BRAIN SX) Social History Alcohol Use: No Tobacco Use: No Substance Use: No Allergies-Medications (Allergen,Severity, Reaction): Coded Allergies: No Known Allergies (Verified , 09/27/16) Reported Meds & Prescriptions Reported Meds & Active Scripts Active Bactrim DS (Sulfamethoxazole-Trimethoprim) 800-160 Mg Tab 1 Tab PO BID 10 Days Keflex (Cephalexin) 500 Mg Cap 500 Mg PO Q6H 10 Days Pantoprazole (Pantoprazole Sodium) 40 Mg Tab 40 Mg PO DAILY Acidophilus/l-Sporogenes (Lactobacillus Acidophilus) 1 Tab Tab 1 Tab PO TID Clotrimazole Anti-Fungal Topical (Clotrimazole) 1% Cream 1 Applic TOPICAL Q8HR Cleocin (Clindamycin HCl) 150 Mg Cap 300 Mg PO Q6HR Review of Systems Except as stated in HPI: all other systems reviewed are Neg Physical Exam Narrative GENERAL: Well-nourished, well-developed male patient, in no acute distress; disheveled; afebrile, nontoxic-appearing SKIN: Warm and dry. Approximately 1 cm open wound to the dorsal aspect of the right foot that is surrounded by erythema; the erythema may be pressure from the shoes he is wearing; no drainage noted. Right lower x-ray supple and non- tense with 2+ pedal pulse and sensory intact and without erythema or edema. HEAD: Atraumatic. Normocephalic. EYES: Pupils equal and round. No scleral icterus. No injection or drainage. ENT: Mucosa pink and moist. Airway patent. NECK: Trachea midline. CARDIOVASCULAR: Regular rate. RESPIRATORY: No accessory muscle use. GASTROINTESTINAL: Rounded. MUSCULOSKELETAL: No obvious deformities. No clubbing. No cyanosis. No edema. NEUROLOGICAL: Awake and alert. Oriented 3. No obvious cranial nerve deficits. Motor grossly within normal limits. Normal speech for patient. PSYCHIATRIC: Appropriate mood and affect; insight and judgment normal. Data Data Last Documented VS Vital Signs Date Time Temp Pulse Resp B/P Pulse Ox O2 Delivery O2 Flow Rate FiO2 09/27/16 16:09 97.9 90 20 129/93 95 Room Air Orders Wound Care (09/27/16 17:23) Wound Culture And Gram Stain (09/27/16 17:24) MDM Medical Decision Making Medical Screen Exam Complete: Yes Emergency Medical Condition: Yes Medical Record Reviewed: Yes Differential Diagnosis Pressure ulcer, open wound, wound infection Narrative Course 46-year-old male with a pressure ulcer, open wounds to the dorsal aspect of his right foot. He is up-to-date on his tetanus vaccination. He is homeless and is wearing appear water shoes that are very tight fitting and 2 small. The wound appears to be caused by the shoes. The wound is surrounded by erythema and I think be erythematous from the pressure of the shoes. I will prescribe antibiotics for possible wound infection. Wound culture pending. Wound care provided in the ER. Patient provided a pair of socks. Patient was given some topical antibiotics and Band-Aids. He does state he has a another pair shoes in his car, in which she lives out of. Patient says he is aware of community resources. Keflex and Bactrim prescribed for home. Patient verbalizes understanding and agreement with treatment plan. Patient is medically cleared and stable for discharge. Discussed reasons to return to the emergency department. Instructed patient to follow up with primary care provider. Patient agrees with treatment plan. The patients vital signs are stable and the patient is stable for outpatient follow-up and treatment. Patient discharged home, stable and in no acute distress. Diagnosis Primary Impression: Open wound of right foot Qualified Code: S91.301A - Open wound of right foot, initial encounter Referrals: Primary Care Physician Patient Instructions: Acute Wound Care (ED), General Instructions Additional Instructions: Ibuprofen or Tylenol as instructed and as needed for pain and inflammation Topical antibiotic ointment to affected area as directed and as needed for wound care Cover bandage as needed for wound care Keep area clean and dry Avoid wearing tight fitting shoes Follow-up with primary care provider Return to the emergency department immediately with worsening of symptoms Med/Other Pt SpecificInfo: Prescription(s) given Scripts Sulfamethoxazole-Trimethoprim (Bactrim DS)800-160 Mg Tab1 Tab PO BID 10 Days Ref 0 Prov:Leeann Selby 09/27/16 Cephalexin (Keflex)500 Mg Cts895 Mg PO Q6H 10 Days Ref 0 Prov:Leeann Selby 09/27/16 Disposition: 01 DISCHARGE HOME Condition: Stable Leeann Selby Sep 27, 2016 17:23
== END 2016-09-27 17:59 | disposition home or self-care (01) ==
LOC: NETRI 16:08
DX: S91.301A Unspecified open wound, right foot, initial encounter (principal); X58.XXXA Exposure to other specified factors, initial encounter; Z59.0 Homelessness
CPT/HCPCS: 87070; 99283

== ENCOUNTER 2017-05-27 12:17 | Emergency (ER) | payer MEDICARE, MEDICAID ==
[~2017-05-27] VITALS: Ht 188 cm; Wt 93.0 kg
[~2017-05-27 12:17] MED LIST changes: +BACT800T5 PO; +CEPH-460 PO
[2017-05-27 12:18] VITALS: BP 148/105; PULSE 121; RESP 20; TEMP 98.6; O2SAT 97
[2017-05-27] MEDS ORDERED: TETANUS/DIPHTHERIA TOXOID ADULT 0.5 ML VIAL IM ONE (12:45)
[2017-05-27] MEDS ORDERED: LIDOCAINE 1%/EPINEPHrine 1:100,000 SOLN 20 ML VIAL INFIL ONE (12:45)
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
== END 2017-05-27 14:05 | disposition home or self-care (01) ==
LOC: NEPD 12:17
DX: S01.01XA Laceration without foreign body of scalp, initial encounter (principal); S00.90XA Unspecified superficial injury of unspecified part of head, initial encounter; R47.81 Slurred speech; R29.810 Facial weakness; G93.89 Other specified disorders of brain; G80.9 Cerebral palsy, unspecified; W01.0XXA Fall on same level from slipping, tripping and stumbling without subsequent striking against object, initial encounter; Z23 Encounter for immunization
CPT/HCPCS: 12002; 70450; 90471; 90714

== ENCOUNTER 2017-06-03 15:30 | Emergency (ER) | payer MEDICARE, MEDICAID ==
[~2017-06-03] VITALS: Ht 188 cm; Wt 92.0 kg
[2017-06-03 15:32] VITALS: BP 150/92; PULSE 91; RESP 18; TEMP 98.2; O2SAT 100
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
== END 2017-06-03 18:42 | disposition home or self-care (01) ==
LOC: NEPD 15:30
DX: Z48.02 Encounter for removal of sutures (principal); G80.9 Cerebral palsy, unspecified
CPT/HCPCS: 99281